=== PATIENT | male | born 1970 | race Caucasian/White ===

== ENCOUNTER 2016-04-22 11:24 | Emergency (ER) ==
--- NOTE | 2016-04-22 12:26 | PROVIDER DOCUMENTATION ---
HPI-EENT General - General Chief Complaint: Edema Stated Complaint: EDEMA/FACE Time Seen by Provider: 04/22/16 12:13 Source: patient Allergies/Adverse Reactions: Patient Allergies Allergy/AdvReac Type Severity Reaction Status Date / Time codeine Allergy "was told Verified 04/22/16 12:11 it made me hyper" Home Medications: Home Medication List Medication Instructions Recorded Confirmed Last Taken Type Clindamycin [Cleocin] 150 mg PO Q6HR #30 capsule 04/22/16 Unknown Rx Ibuprofen [Motrin] 800 mg PO Q8H PRN PRN #20 tablet 04/22/16 Unknown Rx Sulfamethoxazole/Trimethoprim 1 each PO BID 04/22/16 04/22/16 04/22/16 06:15 History [Bactrim Ds Tablet] - History of Present Illness-EENT General Nature of Presenting Problem: 46 y/o WM c/o L sided facial swelling, redness x 3 days. Pt is an inmate with [facility] and states hx of facial cellulitis in the past. Reports has been taking bactrim for several days with no relief. Denies any ear pain, sore throat, cough, sinus congestion/pressure, fever/chills, toothache. Review of Systems - Adult - REVIEW OF SYSTEMS - ADULT Constitutional: reports: no symptoms reported. denies: chills, fever Eyes: reports: no symptoms reported. denies: blurred vision, double vision Ears, Nose, Mouth & Throat: reports: see HPI. denies: ear pain, sinus problem, nose pain, throat pain Cardiovascular: reports: no symptoms reported. denies: chest pain, palpitations Respiratory: reports: no symptoms reported. denies: cough, shortness of breath Gastrointestinal: reports: no symptoms reported. denies: nausea, vomiting Genitourinary: reports: no symptoms reported. denies: dysuria, frequency Musculoskeletal: reports: no symptoms reported. denies: joint pain, joint swelling Integumentary: reports: see HPI. denies: nail changes, rash Neurological: reports: no symptoms reported. denies: numbness, paresthesia Psychiatric: reports: no symptoms reported Endocrine: reports: no symptoms reported. denies: cold intolerance, heat intolerance Hematologic/Lymphatic: reports: no symptoms reported. denies: easy bruising, prolonged bleeding Allergic/Immunologic: reports: no symptoms reported All Other Systems: Reviewed and Negative Past History - Adult - PAST MEDICAL HISTORY-ADULT Review of Records: reports: Nursing Assessment Review, Medications Reviewed - SOCIAL HISTORY Smoking: cigarettes, less than 1 pack/day Provider spent 3-5 mins advising pt. on dangers of tobacco.: Discussed manners to quit use, and f/u contacts for add'l counseling. Living Situation: other Physical Exam- EENT - Physical Exam EENT Initial Vital Signs Reviewed: Yes General Appearance: alert, mild distress Eye Exam: left eye: eyelid inflammation (edema to lower lid, mild), bilateral eye: normal inspection, PERRL, EOMI Ear Exam: bilateral ear: auricle normal, canal normal, TM normal Nasal Exam: normal inspection. negative: sinus tenderness Throat Exam: normal mouth inspection, pharynx normal. negative: dental tenderness, tonsillar exudate Neck: supple, normal inspection, lymphadenopathy (cervical, generalized) Respiratory: no respiratory distress Lymphatic: negative: cervical node tenderness Back Exam: normal inspection Extremity: normal gait Integumentary: normal color, normal turgor, warm/dry, blanching, other (redness noted to L face). negative: jaundice, rash, swelling, warm, zoster-like rash Neurologic: negative: aphasia Psych/Mental Status: normal mood/affect, normal thought content, normal thought process, oriented x 3 Progress - PLAN OF CARE/RESULTS Progress/Plan/Lab Results: Vital Signs Temp Pulse Resp BP Pulse Ox 04/22/16 12:34 98.3 F 72 20 151/82 100 04/22/16 12:00 98.2 F 79 18 141/74 100 codeine Allergy (Verified 04/22/16 12:11) "was told it made me hyper" Clindamycin [Cleocin] 150 mg PO Q6HR #30 capsule 04/22/16 Ibuprofen [Motrin] 800 mg PO Q8H PRN PRN #20 tablet 04/22/16 Sulfamethoxazole/Trimethoprim [Bactrim Ds Tablet] 1 each PO BID 04/22/16 Discussed medication use with pt and escorts, including d/c bactrim and starting clindamycin. Departure - Departure Time of Disposition Order: 12:24 DIAGNOSIS: Skin infection Edema Qualifiers: Edema type: unspecified Qualified Code(s): R60.9 - Edema, unspecified Disposition: HOME 01 Certified Medical Emergency: Emergent Condition: Stable Additional Instructions: Take medications as directed. Discontinue bactrim immediately. ED Follow Up Instructions: You have been treated by a care provider in the Emergency Department. These instructions are being provided to you so you can have an understanding of how to care for yourself upon discharge. Upon discharge from the Emergency Department, you are responsible for making arrangements for follow-up care by a physician of your choice. Take all prescribed medications as directed. Return to the Emergency Department immediately for any new or worsening symptoms. You may call the Physician Referral phone number at [phone] to obtain a list of Physicians who are taking new patients. Prescriptions: Clindamycin [Cleocin] 150 mg PO Q6HR #30 capsule Ibuprofen [Motrin] 800 mg PO Q8H PRN PRN #20 tablet PRN Reason: inflammation Referrals: None,PCP [Primary Care Provider] - Instructions: Cellulitis, Edema Attestation - Physician/ ROBERT Attestation Patient care was provided by Advanced Practice Provider:: Yes Advanced Practice Provider:: Darleen Collins Advanced Practice Provider documentation review:: The Mid-level provider documentation, treatment plan and medical decision making was reviewed by the physician who agrees with all treatment and medical decision making by the MLP.
[2016-04-22 12:35] VITALS: BP 151/82
== END 2016-04-22 12:36 | disposition home or self-care (01) ==
LOC: ED 11:24
DX: L08.9 Local infection of the skin and subcutaneous tissue, unspecified (principal); R60.0 Localized edema; L53.9 Erythematous condition, unspecified; R59.0 Localized enlarged lymph nodes; F17.210 Nicotine dependence, cigarettes, uncomplicated; Z71.6 Tobacco abuse counseling